=== PATIENT | female | born 1955 | race American Indian/Alaskan Native ===

== ENCOUNTER 2019-02-11 07:53 | Outpatient (CLI) | payer BC ==
--- NOTE | 2019-02-11 10:58 | Mammography Report ---
BILATERAL DIGITAL SCREENING MAMMOGRAM with CAD: 02/11/19 07:53:00 CLINICAL: Routine screening. COMPARISON:03/11/16 FINDINGS: The breasts are almost entirely fatty. No mass, architectural distortion or suspicious calcifications. IMPRESSION: No mammographic evidence of malignancy. BI-RADS CATEGORY: 1 - - Negative RECOMMENDATION: Routine mammographic screening in one year. COMMENT: Patient follow-up letters are generated by our [employer] application.
== END 2019-02-11 07:54 | disposition home or self-care (01) ==
LOC: MAMMO 07:53
PROVIDERS: ATTEND Internal Medicine
DX: Z12.31 Encounter for screening mammogram for malignant neoplasm of breast (principal); E78.00 Pure hypercholesterolemia, unspecified; I10 Essential (primary) hypertension; J45.909 Unspecified asthma, uncomplicated
CPT/HCPCS: 77067

== ENCOUNTER 2020-12-07 06:28 | Day surgery (SDC) | payer BC, MEDICARE ==
[2020-12-07] MEDS ORDERED: ASPIRIN EC 325 MG TAB PO ONE (06:56)
[2020-12-07] MEDS ORDERED: SODIUM CHLORIDE 0.9% 500 ML 500 ML IV SCH (07:00)
[2020-12-07] MEDS ORDERED: HEPARIN/NS 5000 UNIT/500ML 1,000 ML IR ONE (08:12)
[2020-12-07] MEDS ORDERED: HEPARIN 10,000 UNITS/10 ML VIAL ONE (08:13)
[2020-12-07] MEDS ORDERED: MIDAZOLAM 2 MG/2 ML INJ ONE (08:13)
[2020-12-07] MEDS ORDERED: NITROGLYCERIN SYRINGE 3 ML ONE (08:13)
[2020-12-07] MEDS ORDERED: LIDOCAINE (2%) 20 MG/1 ML VIAL 20 ML MDV INFILTRATI ONE (08:13)
[2020-12-07] MEDS ORDERED: fentaNYL 100 MCG/2 ML INJ ONE (08:13)
[2020-12-07] MEDS ORDERED: VERAPAMIL 5 MG/2 ML INJ ONE (08:13)
[2020-12-07] MEDS ORDERED: NITROGLYCERIN 600 MCG/3 ML SYRINGE ART-SHEATH ONE (09:05)
--- NOTE | 2020-12-07 09:31 | Short Stay Summary ---
Short Stay Documentation Date of service: 12/07/20 - History Principal diagnosis: Chest Pain H&P: obtained from office Past Medical History: atrial fib, hypertension, hyperlipidemia, other (obesity) Past Surgical History: cholecystectomy, Social history: no smoking, no alcohol abuse - Allergies and Medications Current Medications: Allergies epinephrine Adverse Reaction (Intermediate, Verified 09/22/13 10:40) PALPITATIONS Home Medications Medication Instructions Recorded Confirmed Last Taken Type Aloe Vera 25 mg PO 12/07/20 12/06/20 History 1 cap Amlodipine Besylate [Norvasc] 5 mg PO DAILY 12/07/20 12/07/20 12/06/20 History 5 mg Cholecalciferol Vit D3 [Vitamin D3 2,000 units PO DAILY 12/07/20 12/07/20 12/06/20 History 1,000 UNIT TAB] 2000 units Telmisartan [Micardis] 80 mg PO HS 12/07/20 12/07/20 12/06/20 History 80 mg busPIRone [Buspar] 10 mg PO PRN PRN 12/07/20 12/07/20 Unknown History Active Medications Sodium Chloride (Nacl 0.9% 500 Ml) 500 mls @ 50 mls/hr IV DIRECT DEANNE Stop: 12/07/20 16:59 Last Admin: 12/07/20 07:35 Dose: 50 mls/hr Documented by: - Physical exam General appearance: no acute distress Integumentary: no rash HEENT: Atraumatic, EOMI Lungs: Clear to auscultation Heart: Normal S1, Normal S2, no Murmur Gastrointestinal: normoactive bowel sounds, no tenderness Extremities: pulses intact, No edema Neurological: Other (A/O x 3) - Brief post op/procedure progress note Date of procedure: 12/07/20 Pre-op diagnosis: Chest Pain Post-op diagnosis: other (Normal coronaries by cath) Procedure: Elective C Findings: Normal coronary anatomy, normal LV fxn Surgeon: SRAVANI WILCOX Estimated blood loss: none Pathology: none - Disposition Condition at discharge: Good Disposition: DC-01 TO HOME OR SELFCARE - Discharge Diagnoses (1) Normal coronary arteries Status: Chronic Short Stay Discharge Plan Activity: advance as tolerated Diet: low cholesterol, low salt Wound: per your surgeon's advice Follow up with: ABBIE ALCALA MD [Primary Care Provider] - 7 Days
--- NOTE | 2020-12-07 09:39 | Electrocardiograph Report ---
[facility] Test Date: 2020-12-07 Test Time: 07:23:27 Pat Name: DAJUAN FELIPE Department: Room: Gender: F [employer] Service: LESLI : 1955 Requested By: WESLEY WILCOX Order Number: [id number] Reading MD: Wesley Wilcox Measurements Intervals Dixie Rate: 63 P: -41 TX: 242 QRS: -2 QRSD: 103 T: 63 QT: 401 QTc: 411 Interpretive Statements Sinus rhythm Prolonged TX interval Left ventricular hypertrophy No previous ECG available for comparison Electronically Signed On 12-07-2020 9:38:53 EDT by Wesley Wilcox
[2020-12-07] MEDS ORDERED: HYDROcodone/ACETAMINOPHEN 5-325 MG TAB PO PRN (10:00)
[2020-12-07] MEDS ORDERED: traMADol 50 MG TAB PO PRN (10:00)
[2020-12-07 12:36] VITALS: BP 133/68
--- NOTE | 2020-12-09 12:02 | Cardiac Catherization Report ---
DATE OF PROCEDURE: 12/07/2020 CARDIAC CATHETERIZATION REFERRING PHYSICIAN: Dr. Moreno. INDICATIONS: The patient is a pleasant 65-year-old female with history of hypertension, PFO, PVCs, sleep apnea, AFib, who presents with recurrent chest pain and mildly abnormal stress test, referred for left heart catheterization. Risks, benefits, potential alternatives for any length prior to obtaining informed consent. PROCEDURE IN DETAIL: The patient was brought to carpenter/labor in a postabsorptive state, prepped and draped in sterile fashion. Ramin's test in right hand is normal. A 2 mL of 2% lidocaine used to anesthetize the right wrist. A standard 6-Tamazight hydrophilic sheath was used to cannulate the right radial artery via modified Seldinger technique. All exchanges performed to exchange J-tip guidewire. JL3.5 catheter was used to engage to let main. No dampening or ventricularization. Cineangiography performed in multiple projections. JR4 catheter used to cross the aortic valve under fluoroscopic guidance. Left ventriculography performed in 30 EDWARDS and 30 MOZAMBICAN projections via hand injection, catheter flushed. Manual pullback performed with continuous pressure monitoring. Catheter was used to engage the right coronary. No dampening or ventricularization. Cineangiography performed in multiple projections. Next, catheter exchanged for a pigtail catheter. Given recurrent chest pain and hypertension, root aortography was performed with a pigtail catheter in MOZAMBICAN projection with a power injector. Next, catheter removed from the body of wire, sheath removed. Manual pressure was used to achieve hemostasis. DATA: Aortic pressure is 160/80, LV pressure is 160, LVEDP of 25 mmHg. Left ventriculography reveals normal systolic performance with estimated ejection fraction 55-60%. No evidence of aortic stenosis. CORONARY ANATOMY: Right dominant system. Root aortography was normal contour, no evidence of dissection, penetrating aortic ulcer or aortic insufficiency. There is a short left main. Left dominant system. Left circumflex is a large vessel, courses the AV groove, gives a left PDA and OM trunk with no significant disease. LAD is a moderate sized vessel, courses anterior intraventricular groove and wraps around the apex, intramyocardial bridge is noted, but no evidence of diastolic collapse. She has got luminal irregularities in the LAD, but no obstructive disease. Right coronary artery is a moderate sized vessel, courses the AV groove. No significant disease. CONCLUSIONS: 1. No angiographic evidence of significant epicardial coronary artery disease in this left dominant system. 2. 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 3. Normal left ventricular systolic performance. Estimated ejection fraction 55-60%. 4. No evidence of aortic stenosis. 5. Normal root aortography without evidence of dissection, penetrating aortic ulcer or aortic insufficiency. 6. Mildly elevated LVEDP. At this point, recommend improved blood pressure control, aggressive primary and secondary prevention measures. Stable overall cardiac status. The patient is to follow up with Dr. Moreno in the office, standard radial care. Results of the procedure were discussed with the patient and brother via telephone. All questions were addressed. At the end of the procedure, I directly supervised the administration of moderate sedation with fentanyl and Versed from 9:02 a.m. to 9:32 a.m. No immediate complications were identified. TID: [id number] RECEIPT: [id number] NICKI/MANASA/ELVIS
== END 2020-12-07 13:05 | disposition home or self-care (01) ==
LOC: CATHLABREC 06:28
PROVIDERS: ATTEND Internal Medicine
DX: R07.89 Other chest pain (principal); R94.39 Abnormal result of other cardiovascular function study; E78.00 Pure hypercholesterolemia, unspecified; I48.91 Unspecified atrial fibrillation; I10 Essential (primary) hypertension; M19.90 Unspecified osteoarthritis, unspecified site; F41.9 Anxiety disorder, unspecified; Z98.890 Other specified postprocedural states; Z79.899 Other long term (current) drug therapy; Z88.8 Allergy status to other drugs, medicaments and biological substances; Z90.49 Acquired absence of other specified parts of digestive tract; Z82.49 Family history of ischemic heart disease and other diseases of the circulatory system
CPT/HCPCS: 93005; 93458; 93567; 99156; 99157; C1894; J1644; J2250; J3010; J7040; Q9967